=== PATIENT | male | born 1980 | race Caucasian/White ===

== ENCOUNTER 2023-04-01 07:48 | Emergency (ER) | payer MEDICAID ==
[~2023-04-01] VITALS: Ht 182.9 cm; Wt 100.0 kg
[2023-04-01 07:59] VITALS: BP 141/99; PULSE 95; RESP 18; TEMP 97.7; O2SAT 96
--- NOTE | 2023-04-01 09:10 | NUR ---
will help dc patient
== END 2023-04-01 09:23 ==
LOC: ER 07:48
DX: F11.10 Opioid abuse, uncomplicated (principal); Z00.8 Encounter for other general examination
CPT/HCPCS: 99281; 99282